=== PATIENT | male | born 1980 | race Caucasian/White ===

== ENCOUNTER 2022-09-08 12:06 | Emergency (ER) | payer SELFPAY ==
[2022-09-08 12:15] VITALS: BP 132/83; PULSE 100; RESP 18; TEMP 36.8; O2SAT 99; BMI 27.5
--- NOTE | 2022-09-08 14:18 | ED.NURSE ---
no change. informed of continued wait time
--- NOTE | 2022-09-08 16:59 | CRLHL7_ITS ---
For Patients: As a result of the Cures Act, medical imaging exams and procedure reports are released immediately into your electronic medical record. You may view this report before your referring provider. If you have questions, please contact your health care provider. Indication: Pain injury Technique: Three views right elbow Comparison: No comparison Findings: Normal alignment. No acute fractures seen no effusions. Dictated by Beverley Bryan MD @ 09/08/2022 5:42:11 PM (Electronically Signed)
[2022-09-08 17:00] VITALS: BP 131/93; PULSE 88; RESP 14; O2SAT 99
--- NOTE | 2022-09-08 17:00 | ED.UPPEXIN ---
HPI - Extremity Injury (Upper) General Chief Complaint: Extremity Pain/Injury, Upper Stated Complaint: Possible torn muscle in RT arm Time Seen by Provider: 09/08/22 16:51 History of Present Illness HPI narrative: This 42-year-old male comes in with severe pain in his right elbow region extending and radiating distally and proximally along the ulnar nerve distribution. He states that an injury happened about a week ago where he was reaching for something. He felt a pop in his right elbow region in the medial aspect and since then has had pain that makes it difficult for him to sleep at night. He states that the pain radiates up toward his shoulder and down to the little finger and ring finger of his right hand. He does also have some neck pain on the right side of his neck. He does not report any specific vigorous mechanism of injury besides this. There is no palpable step-off in his right biceps mechanism but does have distinct tenderness when palpating just above the elbow in the region of the brachial radialis. Related Data Previous Rx's Medication Instructions Recorded methylprednisolone 4 mg tablets in See Rx Instructions PO .COMPLEX 09/08/22 a dose pack (Medrol (Jey)) #21 ea Allergies Allergy/AdvReac Type Severity Reaction Status Date / Time No Known Drug Allergies Allergy Verified 09/08/22 12:18 Review of Systems Status of ROS: Reports: 10 or more systems reviewed and unremarkable except as noted in History and below Narrative: Constitutional: No fevers, no weight gain or loss. Eyes: No discharge. No vision changes. HENT: No congestion, no sore throat, no ear pain. Cardiovascular: No chest pain, no palpitations. Respiratory: No shortness of breath, no wheezes, no cough. Gastrointestinal: No abdominal pain, no vomiting, no diarrhea. Genitourinary: No dysuria, no hematuria. Musculoskeletal: Normal range of motion. Right upper extremity pain as described above. Skin: No rashes, no pruritis. Neurological: No dizziness, weakness, sensory change, speech change. Endo/Heme/Allergies: No bruising or bleeding. No polydipsia. Pysch: no suicidality, no anxiety, no insomnia. All other systems reviewed and are negative. Exam Narrative: Exam Narrative: Constitutional: Well-developed, well-nourished, no acute distress. HEENT: Normocephalic, atraumatic. Neck: Normal range of motion. Nontender. Supple. Heart: Regular. No murmurs. Normal rate. Intact distal pulses. Lungs: Clear to auscultation. No chest discomfort. No wheezes, rhonchi, or rales. Abdomen: Normal bowel sounds. Nontender. No rebound tenderness. Genitalia: Deferred. Back: No midline tenderness. Normal range of motion. Extremities: Severe pain in the right upper extremity. There is no sign of swelling or skin injury. There is no palpable step-off when palpating along the flexor mechanism of the biceps and brachial radialis. He has pain extending along the distribution of the ulnar nerve. Skin: Intact. No rash. Warm. No erythema or pallor. Neurologic: No altered sensation. No weakness. Alert and oriented. Spurling's test shows some positive findings, namely he has some increased pain in his right arm when extending his neck and rotating to the right. Psychiatric: No suicidality. No anxiety or depression. No insomnia. Nursing notes and vitals signs are reviewed. Const: Vital Signs, click to edit/add: Vital Signs - 24 hr 09/08/22 12:15 Temperature 98.3 F Pulse Rate [Right Pulse Oximeter] 100 Respiratory Rate 18 Blood Pressure [Ri ght Upper Arm] 132/83 Pulse Oximetry 99 Oxygen Delivery Me thod Room Air Course Vital Signs Vital signs: Initial Vital Signs Temperature 98.3 F 09/08/22 12:15 Temperature Source Temporal Artery Scan 09/08/22 12:15 Pulse Rate 100 09/08/22 12:15 Pulse Rhythm 09/08/22 12:15 Respiratory Rate 18 09/08/22 12:15 Blood Pressure 132/83 09/08/22 12:15 Blood Pressure Mean 99 09/08/22 12:15 Blood Pressure Position Sitting 09/08/22 12:15 Pulse Oximetry 99 09/08/22 12:15 Oxygen Delivery Method 09/08/22 12:15 Vital Signs Temperature 98.3 F 09/08/22 12:15 Pulse Rate 100 09/08/22 12:15 Respiratory Rate 18 09/08/22 12:15 Blood Pressure 132/83 09/08/22 12:15 Pulse Oximetry 99 09/08/22 12:15 Oxygen Delivery Method 09/08/22 12:15 Temperature 98.3 F 09/08/22 12:15 Pulse Rate 100 09/08/22 12:15 Respiratory Rate 18 09/08/22 12:15 Blood Pressure 132/83 09/08/22 12:15 Pulse Oximetry 99 09/08/22 12:15 Oxygen Delivery Method 09/08/22 12:15 MDM - Extremity Injury (Upper) MDM Narrative Medical decision making narrative: This patient comes in with severe pain in his right elbow that radiates down to the ulnar distribution of his right hand. He also has some neck and shoulder discomfort that may be related to a cervical radiculopathy extending down the right arm. He does report a simple maneuver about a week ago worry felt there was a pop in the elbow region. There is no palpable step-off an x-ray images today show normal findings of his right elbow. The patient received an intramuscular injection of morphine 10 mg. This brought significant relief to his symptoms. I did prescribe Medrol Dosepak and Toradol. He also received a sling. I advised him to follow-up with orthopedic clinic if not improving. Imaging Data XR R Elbow: Radiologist's impression: Normal alignment. No acute fractures seen no effusions. Discharge Plan Discharge Clinical Impression: Cervical radiculopathy, Elbow pain, right Patient Disposition: Home, Self-Care Condition: Improved Additional Instructions: Wear sling and increase activity as tolerated. Take medication as prescribed. Follow up with orthopedic clinic if not improving or worsening symptoms occur. Prescriptions: New methylprednisolone [Medrol (Jey)] 4 mg tablets,dose pack See Rx Instructions .ROUTE .COMPLEX Qty: 21 0RF Rx Instructions: orally per package directions Follow Up/Referrals: Provider,Not a Local [Primary Care Provider] - Stand Alone Forms: [employer] Info Instructions
[2022-09-08] MEDS: MORPHINE 10 MG/ML inj IM (17:09)
[2022-09-08 18:10] VITALS: PULSE 78; RESP 18; O2SAT 98
== END 2022-09-08 18:09 | disposition home or self-care (01) ==
PROVIDERS: Emergency Provider Emergency Medicine Emergency Medical Services
DX: M25.521 Pain in right elbow (principal); M54.12 Radiculopathy, cervical region
CPT/HCPCS: 73080; 96372; 99283; 99284; J2270